=== PATIENT | male | born 1990 | race Caucasian/White ===

== ENCOUNTER → 2016-10-31 | Outpatient (CLI) | payer MEDICAID ==
[2016-10-31 12:19] LABS: BASO % 0.6 % (0.0-1.0); EOS # 0.3 K/mm3 (0.0-0.50); EOS % 4.1 % (0.0-3.0); LARGE UNSTAINED CELL # 0.2 K/mm3 (0.0-0.4); LARGE UNSTAINED CELL % 2.3 % (0.0-4.0); LYMPH # 2.3 K/mm3 (1.5-6.5); LYMPH % 31.7 % (24.0-44.0); MEAN CORPUSCULAR HEMOGLOBIN 30.2 pg (27.0-33.0); MEAN CORPUSCULAR HGB CONC 34.5 g/dl (32.0-36.5); MEAN CORPUSCULAR VOLUME 87.5 fl (80.0-96.0); MONO # 0.4 K/mm3 (0.0-0.8); MONO % 5.3 % (0.0-5.0); NEUTROPHILS # 3.8 K/mm3 (1.8-7.7); NEUTROPHILS % 55.9 % (36.0-66.0); PLATELET COUNT, AUTOMATED 273 k/mm3 (150-450); RED CELL DISTRIBUTION WIDTH 12.6 % (11.5-14.5); WHITE BLOOD COUNT 6.7 K/mm3 (4.0-10.0)
[2016-10-31 12:38] LABS: ALBUMIN 4.3 GM/DL (3.2-5.2); ALBUMIN/GLOBULIN RATIO 1.26 (1.00-1.93); ALKALINE PHOSPHATASE 104 U/L (45-117); ALT/SGPT 57 U/L (12-78); ANION GAP 6 MEQ/L (8-16); AST/SGOT 31 U/L (15-37); BILIRUBIN,TOTAL 0.3 MG/DL (0.2-1.0); BLOOD UREA NITROGEN 14 MG/DL (7-18); CALCIUM LEVEL 9.3 MG/DL (8.5-10.1); CARBON DIOXIDE LEVEL 32 MEQ/L (21-32); CHLORIDE LEVEL 101 MEQ/L (98-107); CREATININE FOR GFR 0.81 MG/DL (0.70-1.30); GLOMERULAR FILTRATION RATE > 60.0 (>60); GLUCOSE, FASTING 88 MG/DL (70-105); POTASSIUM SERUM 3.8 MEQ/L (3.5-5.1); SODIUM LEVEL 139 MEQ/L (136-145); TOTAL PROTEIN 7.7 GM/DL (6.4-8.2)
== END ==
LOC: M LAB 11:30
PROVIDERS: ATTEND Family Medicine
DX: F11.20 Opioid dependence, uncomplicated (principal)

== ENCOUNTER 2017-07-18 21:48 | Emergency (ER) | payer MEDICAID ==
[2017-07-18] MEDS: LIDOCAINE 2% MDV 20 ML VIAL SC (22:52)
== END 2017-07-18 23:40 | disposition home or self-care (01) ==
LOC: M ED 21:48
DX: S61.012A Laceration without foreign body of left thumb without damage to nail, initial encounter (principal); W26.0XXA Contact with knife, initial encounter; Y92.009 Unspecified place in unspecified non-institutional (private) residence as the place of occurrence of the external cause; Y93.89 Activity, other specified; F17.210 Nicotine dependence, cigarettes, uncomplicated; F99 Mental disorder, not otherwise specified; M85.80 Other specified disorders of bone density and structure, unspecified site; Z79.899 Other long term (current) drug therapy; Z82.49 Family history of ischemic heart disease and other diseases of the circulatory system
CPT/HCPCS: 12002

== ENCOUNTER → 2017-08-14 | Outpatient (REF) | payer OTHER | LOC: M LAB REF 18:23 | DX: J11.1 Influenza due to unidentified influenza virus with other respiratory manifestations (principal) ==

== ENCOUNTER → 2017-10-05 | Outpatient (CLI) | payer OTHER ==
[2017-10-05 15:15] LABS: HEMOGLOBIN 14.7 g/dl (14.0-18.0); MEAN CORPUSCULAR HEMOGLOBIN 29.3 pg (27.0-33.0); MEAN CORPUSCULAR HGB CONC 34.2 g/dl (32.0-36.5); MEAN CORPUSCULAR VOLUME 85.7 fl (80.0-96.0); PLATELET COUNT, AUTOMATED 443 10^3/uL (150-450); RED BLOOD COUNT 5.02 10^6/uL (4.30-6.10); RED CELL DISTRIBUTION WIDTH 13.3 % (11.5-14.5); WHITE BLOOD COUNT 10.8 10^3/uL (4.0-10.0)
[2017-10-05 15:40] LABS: ALBUMIN 4.2 GM/DL (3.2-5.2); ALBUMIN/GLOBULIN RATIO 1.11 (1.00-1.93); ALKALINE PHOSPHATASE 112 U/L (45-117); ALT/SGPT 22 U/L (12-78); ANION GAP 6 MEQ/L (8-16); AST/SGOT 20 U/L (7-37); BILIRUBIN,TOTAL 0.4 MG/DL (0.2-1.0); BLOOD UREA NITROGEN 16 MG/DL (7-18); CALCIUM LEVEL 9.5 MG/DL (8.5-10.1); CARBON DIOXIDE LEVEL 31 MEQ/L (21-32); CHLORIDE LEVEL 104 MEQ/L (98-107); CREATININE FOR GFR 0.84 MG/DL (0.70-1.30); GLOMERULAR FILTRATION RATE > 60.0 (>60); GLUCOSE, FASTING 90 MG/DL (70-100); POTASSIUM SERUM 4.1 MEQ/L (3.5-5.1); SODIUM LEVEL 141 MEQ/L (136-145)
[2017-10-05 15:55] LABS: HEPATITIS B SURFACE ANTIGEN NEGATIVE (NEGATIVE)
[2017-10-05 16:23] LABS: HIV 1&2 SCREEN CENTAUR NEGATIVE (NEGATIVE)
[2017-10-05 16:44] LABS: CHLAMYDIA DNA AMPLIFICATION NEGATIVE (NEGATIVE); GC DNA AMPLIFICATION NEGATIVE (NEGATIVE)
== END ==
LOC: M LAB 14:47
DX: F11.20 Opioid dependence, uncomplicated (principal)
CPT/HCPCS: 93005

== ENCOUNTER 2018-08-23 12:42 | Day surgery (SDC) | payer OTHER ==
[~2018-08-23] VITALS: Ht 180.3 cm; Wt 80.6 kg
[~2018-08-23 12:42] MED LIST: GABA600T4; SUBO8MIS SL; TRAZ-160; VENL75CA47
[2018-08-23] MEDS ORDERED: NS 1,000 ML IV SCH ×2 (12:59→16:30)
[2018-08-23] MEDS ORDERED: MORPHINE 4 MG/ML 1ML VIAL/SYRINGE (J2270) IV PRN (13:00)
[2018-08-23 14:17] LABS: HEMATOCRIT 40.3 % (42.0-52.0); HEMOGLOBIN 13.9 g/dl (13.5-17.5); MEAN CORPUSCULAR HEMOGLOBIN 29.4 pg (27.0-33.0); MEAN CORPUSCULAR HGB CONC 34.5 g/dl (32.0-36.5); MEAN CORPUSCULAR VOLUME 85.4 fl (80.0-96.0); PLATELET COUNT, AUTOMATED 298 10^3/uL (150-450); RED BLOOD COUNT 4.72 10^6/uL (4.30-6.10); WHITE BLOOD COUNT 15.8 10^3/uL (4.0-10.0)
--- NOTE | 2018-08-23 14:38 | REP ---
Clinical: Trauma. Technique: AP, lateral, bilateral oblique views of the left ankle. Findings: There is an oblique moderately displaced fracture involving the distal tibial diaphysis. Ankle joint appears intact and normal. Impression: Oblique moderately displaced fracture of the distal tibial diaphysis. Electronically Signed by Az Dixon MD 08/23/2018 02:29 P
--- NOTE | 2018-08-23 14:38 | REP ---
Clinical: Trauma. Technique: AP and lateral views of the left tibia / fibula. Findings: Comminuted fracture of the proximal fibular metadiaphysis and oblique minimally displaced fracture of the distal tibial diaphysis appreciated. No subcutaneous emphysema or radiodense foreign body. Impression: Fractures of the proximal fibula and distal tibia. Electronically Signed by Az Dixon MD 08/23/2018 02:30 P
[2018-08-23 14:44] LABS: BLOOD UREA NITROGEN 11 MG/DL (7-18); CALCIUM LEVEL 8.9 MG/DL (8.5-10.1); CARBON DIOXIDE LEVEL 29 MEQ/L (21-32); CHLORIDE LEVEL 104 MEQ/L (98-107); CREATININE FOR GFR 0.81 MG/DL (0.70-1.30); GLOMERULAR FILTRATION RATE > 60.0 (>60); GLUCOSE, FASTING 91 MG/DL (70-100); POTASSIUM SERUM 3.7 MEQ/L (3.5-5.1); SODIUM LEVEL 140 MEQ/L (136-145)
[2018-08-23] MEDS ORDERED: NICO4LOZ BUC (15:15)
[2018-08-23] MEDS ORDERED: METH10TA2 PO (15:15)
[2018-08-23] MEDS ORDERED: MEDICAL MARIJUANA INH (15:15)
[2018-08-23] MEDS ORDERED: VENTAER INH (15:15)
[2018-08-23] MEDS: HYDROMORPHONE HCL 0.5 MG/ 0.5 ML SYRINGE (J1170 PER 1) IV PRN ×2 (15:25→18:10)
[2018-08-23] MEDS ORDERED: diphenhydrAMINE INJ 50MG/ML VIAL (J1200) IV STA (16:29)
[2018-08-23] MEDS ORDERED: METOCLOPRAMIDE INJ 10MG/2ML VIAL (J2765) IV ONE (16:30)
[2018-08-23] MEDS ORDERED: METOCLOPRAMIDE INJ 10MG/2ML VIAL (J2765) As Ordered ONE (16:38)
[2018-08-23] MEDS ORDERED: diphenhydrAMINE INJ 50MG/ML VIAL (J1200) As Ordered ONE (16:39)
--- NOTE | 2018-08-23 17:14 | CR ---
EMERGENCY ROOM CONSULTATION / ADMISSION NOTE DATE OF SERVICE: 08/23/2018 REASON FOR CONSULTATION AND ADMISSION: Left tibia and fibula fracture. HISTORY OF PRESENT ILLNESS: 28-year-old male who slipped on the snow walking on a sidewalk twisting his left leg. [place] a pop, was unable to ambulate, called his mother who came to the scene and unable to get him up and called the ambulance. He was brought by ambulance to [facility] for evaluation. Complained of isolated soreness only to his left leg and ankle area. There is no other injury or complaints of soreness or pain otherwise. He is here with his mother. PAST MEDICAL HISTORY: Significant for opioid addiction. Remote staphylococcus infection of his toe. MEDICATIONS: - methadone 70 mg by mouth daily - He has a Marinol prescription PRIMARY CARE PROVIDER: Dr. Burnette who oversees his opioid addiction medication regimen. SOCIAL HISTORY: He is presently unemployed but he normally works at the [employer] in [place]. He does smoke cigarettes. FAMILY HISTORY: Otherwise unremarkable. PHYSICAL EXAMINATION: Alert and oriented male. Only complains of soreness of the left leg and ankle. Does complain of a vague tingling sensation in his foot associated with the swelling of the ankle. Temperature 99.7, pulse is 96, respirations 18, blood pressure 153/94, oxygen saturations are 97% on room air. LUNGS: Clear to auscultation. HEART: Regular. I do not detect a murmur. ABDOMEN: Nontender. EXTREMITIES: Left lower extremity. He has no tenderness or swelling about the knee. His left lower leg had some mild swelling above the ankle with localized tenderness, but his compartments otherwise were soft. He can dorsiflex and plantarflex is ankle and his great toe without excessive pain. He had a strong dorsalis pedis and posterior tibialis pulse and sensory testing to light touch was actually intact dorsum and plantar surface of his foot, but he had that vague tingling sensation, said it just does not feel normal. X-rays reveal a distal two-thirds oblique tibia fracture with some displacement, but reasonably aligned on the lateral view. LABS: Laboratory studies showed a white count of 15.8, hematocrit 40.3, platelets 298. Sodium 140, potassium 3.7, bicarbonate 29, chloride 104. Sugar 91. BUN 11, creatinine 0.81. IMPRESSION: This is a closed left tibia and fibula fracture in a 28-year-old male. He is generally healthy other than is opioid addiction and he is a smoker. I talked to he and his mother and the patient at length about the options for treatment of these types of injuries, either closed management with a long leg cast or surgical management, either with plate and screws or intramedullary nail. The advantage of the closed treatment is no risk of having a surgical intervention that puts him at risk of infection or nerve or blood vessel damage. However, the downside would be the morbidity of a long leg cast. Other options of course were surgical, but that carries the risk of having infection, damage to nerves and blood vessels, anesthetic complications amongst others, but the advantage would be better chance of getting more anatomic reduction and a more comfortable and early mobilization. The actual healing time may not be that much different. But I went over these options with him in detail. He is a bit of an increased risk because he is a smoker, but he is trying to quit and we did advise him to work on that, but otherwise we have elected to proceed with surgical management, I think reasonable to consider an IM nail for this fracture, explained that I would have to make an incision in the knee. But that does carry the risk as outlined and he understands that and so he has decided to go ahead. He has been nothing by mouth (npo) since yesterday actually and so he signed the consent today for the procedure and we plan to proceed when the operating room is available for us. I told him that it may be myself or possibly my partner Dr. Mosqueda depending on the OR availability because Dr. Mosqueda my partner will be poultry boner for the evening on the weekend.
[2018-08-23] MEDS ORDERED: HYDROMORPHONE HCL 0.5 MG/ 0.5 ML SYRINGE (J1170 PER 1) As Ordered ONE (18:07)
[2018-08-23] MEDS ORDERED: ONDANSETRON 4MG/2ML VIAL (J2405) As Ordered ONE (19:24)
[2018-08-23] MEDS ORDERED: LIDOCAINE 2% INJ 100 MG/5 ML SDV (FOR ANES.) As Ordered ONE (19:24)
[2018-08-23] MEDS ORDERED: dexameTHASONE 4 MG/ML 1ML VIAL (J1100) As Ordered ONE (19:24)
[2018-08-23] MEDS ORDERED: PROPOFOL 500 MG/50 ML VIAL As Ordered ONE (19:25)
[2018-08-23] MEDS ORDERED: MIDAZOLAM INJ 2 MG/2 ML VIAL (J2250) As Ordered ONE (19:25)
[2018-08-23] MEDS ORDERED: fentaNYL 100 MCG/2 ML INJECTION (J3010) As Ordered ONE ×2 (19:25→22:46)
[2018-08-23] MEDS ORDERED: ceFAZolin 2 GM/D5W 50 ML IV BAG (J0690 PER 500MG) As Ordered ONE (20:29)
[2018-08-23] MEDS ORDERED: ceFAZolin 1GM INJ (J0690 PER 500MG) As Ordered ONE (20:36)
[2018-08-23] MEDS ORDERED: PROPOFOL 200 MG/20 ML VIAL As Ordered ONE ×2 (21:29→22:46)
[2018-08-23] MEDS ORDERED: DESFLURANE 240 ML INHALANT As Ordered ONE ×2 (22:49→22:51)
[2018-08-23] MEDS: PERCOCET 5MG/325MG TAB PO PRN (23:20)
[2018-08-23] MEDS: fentaNYL 100 MCG/2 ML INJECTION (J3010) IV PRN ×4 (23:20→23:47)
[2018-08-23] MEDS ORDERED: NORCO, ANEXSIA 5/325MG TABLET (HYDROcodone/ACETAMINOPHEN) PO PRN ×2 (23:30)
[2018-08-23] MEDS ORDERED: ONDANSETRON 4MG/2ML VIAL (J2405) IV PRN (23:30)
[2018-08-23] MEDS ORDERED: HYDROMORPHONE HCL 0.5 MG/ 0.5 ML SYRINGE (J1170 PER 1) IV PRN (23:30)
[2018-08-23] MEDS ORDERED: LR 1,000 ML IV SCH (23:30)
[2018-08-23] MEDS: LR 1,000 ML IV SCH (23:30)
[2018-08-24] MEDS: PERCOCET 5MG/325MG TAB PO PRN (00:37)
[2018-08-24 00:40] VITALS: BP 135/86
[2018-08-24] MEDS ORDERED: PERCOCET 5MG/325MG TAB As Ordered ONE (00:40)
[2018-08-24] MEDS: MORPHINE 4 MG/ML 1ML VIAL/SYRINGE (J2270) IV PRN ×3 (01:10→05:25)
[2018-08-24] MEDS: NICOTINE 21MG/24HR 1 EA TRANSDERMAL TD SCH ×2 (02:11→08:31)
[2018-08-24] MEDS ORDERED: zolPIDEM TARTRATE 5 MG TAB PO ONE (02:15)
[2018-08-24 02:40] VITALS: BP 130/65
[2018-08-24 03:40] VITALS: BP 131/73
--- NOTE | 2018-08-24 04:12 | REP ---
Clinical: Fracture fixation. Technique: Intraoperative fluoroscopic imaging. Findings: Multiple intraoperative fluoroscopic images using portable C-arm technique demonstrate the patient to be status post satisfactory open reduction and fixation for distal tibial diaphyseal fracture. Intermedullary rakesh through the tibial shaft with locking screws are identified. Total fluoroscopic time 4 minutes 20 seconds. Impression: Satisfactory open reduction and fixation for distal tibial diaphyseal fracture. Electronically Signed by Az Dixon MD 08/24/2018 04:04 A
[2018-08-24 04:40] VITALS: BP 137/63
[2018-08-24 06:00] VITALS: BP 157/85
[2018-08-24] MEDS ORDERED: PERC5TAB12 PO (06:22)
[2018-08-24] MEDS ORDERED: KETOROLAC 30 MG/ML VIAL (J1885) IV ONE (06:30)
[2018-08-24] MEDS ORDERED: BAYE325T12 PO (06:43)
--- NOTE | 2018-08-24 07:52 | IPN ---
DATE: 08/24/2018 CHIEF COMPLAINT: Postoperative day #1 left tibia intramedullary nail (IM) nail for a fracture. HISTORY OF PRESENT ILLNESS: This is a 28-year-old man, apparently slipped on the snow walking on a sidewalk twisted his left leg. He had intramedullary nailing performed of this fracture yesterday by Dr. Gus Pearce. I am seeing him today on the [place] postoperative day #1. He was having definitely some pain overnight and I was called for a nicotine patch order and a sleeping pill, which I ordered a one time dose of Ambien for him. He apparently had a better night once he got some sleep. This morning he is comfortable. He not complaining about any pain in the leg except when he has to move it around. He has no other concerns. The pain is located distally at the fracture site. No other concerns from the nursing staff or from Elizabeth arndt nurse practitioner. PHYSICAL EXAMINATION: Vital signs: Temperature this morning 98.0. Blood pressure 157/85, mean arterial pressure (MAP) 109. Pulse rate 60. 19 respiratory rate. 99% on room air. He is alert and oriented times three. Mood and affect is good and actually quite pleasant. Station is normal. His lower extremity is in a bandage from the knee down with a three-sided splint. He is able to wiggle toes. Toes are warm and well perfused. He has normal sensation throughout the foot. Compartments are soft in the posterior aspect and anterior compartment. No pain with wiggling his toes or dorsiflexion of plantar flexion of his toes. There is no blood work yet from this morning. Yesterday's hemoglobin was 13.9. Similarly, chemistries are still pending. ASSESSMENT AND PLAN: This 28-year-old man postoperative day #1 from a left tibia fracture fixed with an intramedullary nail. We have warned him that usual course of this is to be non-weightbearing for about 6 weeks' time. He should followup in the office in about 2 weeks. Physiotherapy will come around for crutches teaching. We have also given him a dose of intramuscular (IM) Toradol last night and this seems to be helping for his pain. He can be discharged home when he is safe to weight-bear and when he is comfortable. I have also reminded him to elevate it. We have him on aspirin 325 mg by mouth once daily while he is in hospital for venous thromboembolism (VTE) prophylaxis. This man is also a recovering opioid abuser and he is on methadone 70 mg subcu once daily. He should continue on to finish his intravenous cefazolin for routine postoperative care. Hopefully, he is discharged home today.
[2018-08-24] MEDS: LR 1,000 ML IV SCH (08:32)
[2018-08-24] MEDS ORDERED: ASPIRIN 325 MG TAB PO SCH (09:00)
[2018-08-24] MEDS ORDERED: METHADONE 10 MG TAB (S0109) PO SCH (09:00)
--- NOTE | 2018-08-24 09:23 | RO ---
DATE OF PROCEDURE: 08/23/2018 PREPROCEDURE DIAGNOSIS: Left distal tibial with proximal fibula fracture. POSTPROCEDURE DIAGNOSES: 1. Left distal tibial fracture with proximal fibular fracture. 2. Nondisplaced intra-articular distal tibial posterior malleolar fracture. PROCEDURE: 1. Closed intramedullary (IM) of left tibia fracture with a size 9 x 345 mm reamed Synthes nail with two distal interlocks and one proximal interlock. 2. Percutaneous screw fixation of posterior malleolus fracture, left distal tibia. SURGEON: Dr. Swetha Pearce. BLOCK GREASER: ANESTHESIA: Spinal with general laryngeal mask anesthetic. COMPLICATIONS: None. ESTIMATED BLOOD LOSS: 50 mL. DESCRIPTION OF PROCEDURE: Antibiotics were given intravenously preoperatively and a then a successful spinal anesthetic was induced. A tourniquet was placed on the left upper thigh but no utilized throughout the case. The left lower extremity was then carefully prepped and draped in the usual sterile fashion. After appropriate time out, a longitudinal incision was made in the medial parapatellar tendon area. Blunt dissection down to the deep parapatellar tendon retinaculum was performed. Bovie cautery was used to coagulate the crossing vessels. The retinaculum was divided. We stayed extra-articularly and identified the starting point just behind the patellar tendon proximal to the tibial tubercle. Under fluoroscopic imaging, between the AP and lateral planes, I determined the starting point and drilled a short distance, then used the awl to open and then placed the ball-tip guide rakesh. We took our time to try to get the guide rakesh down the tibial shaft. Once I got to the fracture site, I used an extra-articular clamp percutaneously to hold the bone relatively reduced in rotation and length as well as varus valgus. The I passed the ball-tip guide rakesh across the fracture site making sure it tended to go centered into the distal fragment so it would not cause any varus or valgus malalignment as best as I could determine. Initially, however, the guide rakesh had a bend in it proximally along the lateral cortex of the tibia, thus I had to remove the guidewire and replace it such that it was centered all the way down the tibial shaft. Once that was set, I was satisfied with the reduction, immediately got the length measured at 345 mm and then began reaming starting at 9. He actually had good chatter starting even at 9 so I only went up to 10.5 and placed a 9 mm IM nail. That was called for once we completed the reaming under fluoroscopic imaging and then the nail was loaded and placed across the fracture site. At this point while we were looking at the distal interlock, she could see that there was a nondisplaced posterior malleolar fracture. At this point, I placed the two distal interlocks under free-hand technique by making the small 15 blade incision in the skin, bunt dissection down to the bone and then drilling across the distal portion of the rakesh through the distal interlock holes, measuring with the depth gauge and then passing the appropriate size screws and checking their position in the AP and lateral planes. We then placed the proximal interlock screw. Again, we made a small longitude incision and dissected down to the bone bluntly and drilled across, measured and placed a 42 mm proximal interlock screws. We checked its position in the AP and lateral planes with the fluoroscope. The rakesh was also noted to be in good position. I irrigated out proximally and decided to use a +5 mm end cap in case we needed to come back and extract the nail. That was placed without difficulty. We then turned our attention back to the posterior malleolar fragment. I decided to use a 4.5 cannulated screw because that would allow us freedom of orientation as opposed to using the distal interlock screw going through the nail as I wanted to make sure it went appropriately perpendicular to the fracture site. Under fluoroscopic imaging, I made a small longitudinal incision anteriorly. Dissection down with a blunt hemostat to the anterior tibial cortex and passed the 4.5 cannulated guidepin across. Made sure it was in good position and was away from the nail so it would not interfere. Once I measured appropriately, I just drilled the nearer cortex and passed a partially threaded 4.5 cannulated screw with excellent purchase. After this, we could no longer see the fracture line. It was anatomically aligned. At this point, we copiously irrigated out all of the wounds. Closed the retinacular deep tissues with #2-0 PDS suture around the parapatellar tendon, and then the deep subdermal tissues with interrupted #2-0 PDS suture. The skins was closed with darrick. All the wounds were then covered with Adaptic dry sterile bulky dressing, Webril, cast padding and then a sugar-tongue splint across the ankle was applied with an yasmin wrap. He was then awakened from general laryngeal mask anesthetic after having tolerated the procedure well. Then transferred to the recovery room in stable condition. There were no intraoperative complications.
--- NOTE | 2018-08-28 08:30 | ECGEPIP ---
Stationary ECG Study [facility] - ED Test Date: 2018-08-24 Pat Name: MARIS GREEN Department: Room: - Gender: M Fireperson: : 1990 Requested By: Sanyd Bautista Order Number: [id number] Reading MD: Sandy Bautista Measurements Intervals [place] Rate: 47 P: 49 ID: [id number] QRS: 17 QRSD: 86 T: 21 QT: 455 QTc: 406 Interpretive Statements [address]INUS BRAD[address]ARDIA [address] ELEVATION, PROBABLY EARLY REPOLARIZATION BASELINE ARTIFACT LIMITS INTERPRETATION DECREASED RATE 10/05/17 Electronically Signed On 08-28-2018 8:30:04 EST by Sandy Bautista
== END 2018-08-24 10:35 | disposition home or self-care (01) ==
LOC: M ED 12:42 → M SDC 15:05 → M MS5PR 08-24 00:40 → M SDC 08-24 10:35
PROVIDERS: ATTEND Orthopaedic Surgery
DX: S82.302A Unspecified fracture of lower end of left tibia, initial encounter for closed fracture (principal); S82.832A Other fracture of upper and lower end of left fibula, initial encounter for closed fracture; S82.55XA Nondisplaced fracture of medial malleolus of left tibia, initial encounter for closed fracture; W00.0XXA Fall on same level due to ice and snow, initial encounter; Y92.89 Other specified places as the place of occurrence of the external cause; Y93.89 Activity, other specified; Y99.8 Other external cause status; F11.21 Opioid dependence, in remission; F12.90 Cannabis use, unspecified, uncomplicated; R51 Headache; M41.9 Scoliosis, unspecified; Z72.0 Tobacco use
CPT/HCPCS: 27759; 27769; 36415; 73590; 73610; 80048; 85027; 93005; 96374; 96375; 96376; 97110; 97116; 97530; 99285; C1713; J0690; J1100; J1170; J1200; J1885; J2250; J2270; J2405; J2765; J3010

== ENCOUNTER → 2018-09-27 | Outpatient (CLI) | payer OTHER ==
[~2018-09-27] MED LIST changes: +BAYE325T12 PO; +MEDICAL MARIJUANA INH; +METH10TA2 PO; +NICO4LOZ BUC; +PERC5TAB12 PO; +VENTAER INH
[2018-09-27 16:27] LABS: HEMATOCRIT 43.6 % (42.0-52.0); HEMOGLOBIN 14.6 g/dl (13.5-17.5); MEAN CORPUSCULAR HEMOGLOBIN 29.1 pg (27.0-33.0); MEAN CORPUSCULAR HGB CONC 33.5 g/dl (32.0-36.5); PLATELET COUNT, AUTOMATED 379 10^3/uL (150-450); RED BLOOD COUNT 5.01 10^6/uL (4.30-6.10); WHITE BLOOD COUNT 16.2 10^3/uL (4.0-10.0)
[2018-09-27 17:00] LABS: ALBUMIN 4.2 GM/DL (3.2-5.2); ALT/SGPT 23 U/L (12-78); BILIRUBIN,TOTAL 0.7 MG/DL (0.2-1.0); BLOOD UREA NITROGEN 16 MG/DL (7-18); CALCIUM LEVEL 8.8 MG/DL (8.5-10.1); CARBON DIOXIDE LEVEL 33 MEQ/L (21-32); CHLORIDE LEVEL 103 MEQ/L (98-107); CREATININE FOR GFR 0.96 MG/DL (0.70-1.30); GLOMERULAR FILTRATION RATE > 60.0 (>60); GLUCOSE, FASTING 94 MG/DL (70-100); POTASSIUM SERUM 4.3 MEQ/L (3.5-5.1); SODIUM LEVEL 141 MEQ/L (136-145); TOTAL PROTEIN 8.1 GM/DL (6.4-8.2)
[2018-09-27 17:51] LABS: HIV 1&2 SCREEN CENTAUR NEGATIVE (NEGATIVE)
[2018-09-27 18:06] LABS: CHLAMYDIA DNA AMPLIFICATION NEGATIVE (NEGATIVE); GC DNA AMPLIFICATION NEGATIVE (NEGATIVE)
--- NOTE | 2018-09-28 17:43 | ECGEPIP ---
Stationary ECG Study [facility] Test Date: 2018-09-27 Pat Name: MARIS GREEN Department: Room: - Gender: M Expediter Clerk: DIA : 1990 Requested By: Mohan Burnette Order Number: [id number] Reading MD: Xavier Kat Measurements Intervals [place] Rate: 68 P: 62 SC: 177 QRS: 38 QRSD: 86 T: 53 QT: 388 QTc: 414 Interpretive Statements SINUS RHYTHM [address] ELEVATION, PROBABLY EARLY REPOLARIZATION Electronically Signed On 09-28-2018 17:43:18 EST by Xavier Kat
[2018-09-30 10:40] LABS: HEPATITIS B SURFACE ANTIGEN NEGATIVE (NEGATIVE)
[2018-09-30 11:09] LABS: HEPATITIS C VIRUS ABY INDEX < 0.0 INDEX (<0.8)
== END ==
LOC: M LAB 16:04
PROVIDERS: ATTEND Family Medicine
DX: F11.20 Opioid dependence, uncomplicated (principal)

== ENCOUNTER → 2019-11-05 | Outpatient (REF) | payer OTHER ==
[~2019-11-05] MED LIST changes: -TRAZ-160; +TRAZ-252
[2019-11-05 13:55] LABS: BASO # 0.1 10^3/uL (0.0-0.2); BASO % 0.8 % (0.0-1.0); EOS # 0.3 10^3/uL (0.0-0.5); EOS % 3.8 % (0.0-3.0); HEMATOCRIT 43.5 % (42.0-52.0); LYMPH # 2.1 10^3/uL (1.5-5.0); LYMPH % 27.3 % (24.0-44.0); MEAN CORPUSCULAR HEMOGLOBIN 30.2 pg (27.0-33.0); MEAN CORPUSCULAR HGB CONC 34.5 g/dl (32.0-36.5); MEAN CORPUSCULAR VOLUME 87.5 fl (80.0-96.0); MONO # 0.6 10^3/uL (0.0-0.8); MONO % 7.2 % (0.0-5.0); NEUTROPHILS # 4.6 10^3/uL (1.5-8.5); NEUTROPHILS % 60.5 % (36.0-66.0); PLATELET COUNT, AUTOMATED 350 10^3/uL (150-450); RED BLOOD COUNT 4.97 10^6/uL (4.30-6.10); WHITE BLOOD COUNT 7.6 10^3/uL (4.0-10.0)
[2019-11-05 14:16] LABS: ALBUMIN 3.8 GM/DL (3.2-5.2); ALT/SGPT 18 U/L (12-78); BILIRUBIN,TOTAL 0.2 MG/DL (0.2-1.0); BLOOD UREA NITROGEN 14 MG/DL (7-18); CALCIUM LEVEL 9.5 MG/DL (8.5-10.1); CARBON DIOXIDE LEVEL 30 MEQ/L (21-32); CHLORIDE LEVEL 104 MEQ/L (98-107); CHOLESTEROL LEVEL 135 MG/DL (<200); CHOLESTEROL RISK RATIO 3.214 (<5); CREATININE FOR GFR 0.83 MG/DL (0.70-1.30); GLOMERULAR FILTRATION RATE > 60.0 (>60); GLUCOSE, FASTING 104 MG/DL (70-100); HDL CHOLESTEROL 42 MG/DL (>40); HEPATITIS B SURFACE ANTIBODY POSITIVE (POSITIVE); LDL CHOLESTEROL 72 MG/DL (<100); NON-HDL-C 93 MG/DL; POTASSIUM SERUM 4.1 MEQ/L (3.5-5.1); SODIUM LEVEL 137 MEQ/L (136-145); THYROID STIMULATING HORMONE 0.384 uIU/ML (0.358-3.740); TOTAL PROTEIN 7.5 GM/DL (6.4-8.2); TRIGLYCERIDES LEVEL 106 MG/DL (<150)
[2019-11-05 14:26] LABS: HEPATITIS B SURFACE ANTIGEN NEGATIVE (NEGATIVE)
[2019-11-05 14:54] LABS: HEPATITIS B CORE ANTIBODY IGM NEGATIVE (NEGATIVE); HEPATITIS C VIRUS ABY INDEX 0.1 INDEX (<0.8)
[2019-11-05 14:55] LABS: HIV 1&2 SCREEN CENTAUR NEGATIVE (NEGATIVE)
== END ==
LOC: M SFHCPLAZ 10:36
PROVIDERS: ATTEND Physician Assistant Medical
DX: F19.10 Other psychoactive substance abuse, uncomplicated (principal); Z13.220 Encounter for screening for lipoid disorders; F41.9 Anxiety disorder, unspecified; Z72.51 High risk heterosexual behavior

== ENCOUNTER → 2019-11-11 | Outpatient (REF) | payer OTHER ==
[2019-11-11 21:52] LABS: CHLAMYDIA DNA AMPLIFICATION NEGATIVE (NEGATIVE); GC DNA AMPLIFICATION NEGATIVE (NEGATIVE)
== END ==
LOC: M SFHCPLAZ 16:44
PROVIDERS: ATTEND Physician Assistant Medical
DX: Z72.51 High risk heterosexual behavior (principal)

== ENCOUNTER 2020-10-08 18:53 | Emergency (ER) | payer OTHER ==
[~2020-10-08] VITALS: Ht 177.8 cm; Wt 68.2 kg
[~2020-10-08 18:53] MED LIST changes: +NICO-264 BUC; -NICO4LOZ BUC
[2020-10-08 18:54] VITALS: BP 174/96
[2020-10-08] MEDS ORDERED: SUBL100I SC (19:02)
[2020-10-08] MEDS ORDERED: KETOROLAC TROMETHAMINE 10 MG TAB PO ONE (19:15)
--- NOTE | 2020-10-08 19:29 | REP ---
INDICATION: fell/pain COMPARISON: None. TECHNIQUE: There are four views. FINDINGS: There is soft tissue edema dorsally. There is no fracture or dislocation. Mineralization and joint spaces are normal. There are no calcifications or foreign bodies. IMPRESSION: Soft tissue edema dorsally. No fracture or dislocation. <Electronically signed by Mohan Broussard > 10/08/209
== END 2020-10-08 19:56 | disposition home or self-care (01) ==
LOC: M ED 18:53
DX: S63.501A Unspecified sprain of right wrist, initial encounter (principal); W01.0XXA Fall on same level from slipping, tripping and stumbling without subsequent striking against object, initial encounter; Y92.9 Unspecified place or not applicable; Y93.9 Activity, unspecified; Y99.9 Unspecified external cause status

== ENCOUNTER 2021-04-06 16:48 | Emergency (ER) | payer OTHER ==
[~2021-04-06] VITALS: Ht 177.8 cm; Wt 63.6 kg
[~2021-04-06 16:48] MED LIST changes: +METH-1177 PO; -METH10TA2 PO; +SUBL100I SC
--- NOTE | 2021-04-06 18:11 | REP ---
INDICATION: TRAUMA. COMPARISON: 10/08/2020 TECHNIQUE: Five views with scaphoid view FINDINGS: There is a fracture through the waist of the scaphoid. There is a distal radial fracture with slight impaction. IMPRESSION: Scaphoid and distal radial fractures. <Electronically signed by Erick Anguiano > 04/06/21 [id number]
--- NOTE | 2021-04-06 19:10 | REP ---
INDICATION: ttp s/p fall. COMPARISON: None. TECHNIQUE: Four views FINDINGS: There is no acute fracture or destructive osseous lesion involving the hand. IMPRESSION: No acute abnormality involving the hand. See the wrist report. <Electronically signed by Erikc Anguiano > 04/06/21 [id number]
--- NOTE | 2021-04-06 19:11 | REP ---
INDICATION: ttp s/p fall. COMPARISON: None. TECHNIQUE: AP and lateral views FINDINGS: Scaphoid and distal radial fractures are identified. See the wrist report. There are no additional fractures. IMPRESSION: As above. <Electronically signed by Erick Anguiano > 04/06/21 [id number]
[2021-04-06] MEDS ORDERED: BOOSTRIX/ADACEL VACCINE (DIPHTH/PERTUSS/ACELL/TETANUS) 0.5ML SYR IM ONE (19:50)
[2021-04-06] MEDS ORDERED: NEOSPORIN OINT 0.9 GM PKT TOP ONE (21:35)
[2021-04-06 22:17] VITALS: BP 169/98
--- NOTE | 2021-04-07 06:47 | CR ---
ER CONSULTATION DATE: 04/06/2021 TIME: 9 p.m. CONSULTING SERVICE: Orthopedic Service CONSULTING PHYSICIAN: ANNETTE WALLS MD HISTORY OF PRESENT ILLNESS: This is a 30-year-old male who was long-boarding (skateboarding) in [place] when he sustained a fall off his skateboard going down a hill. The patient fell onto an outstretched right arm where he sustained a displaced distal third scaphoid fracture and a minimally displaced distal radius fracture which appeared to be extraarticular. This was a closed injury. He did have some mild road rash, however this is not an open fracture. Orthopedic Surgery was consulted for further evaluation and treatment. PAST MEDICAL HISTORY: Patient denies. PAST SURGICAL HISTORY: Left ankle open reduction internal fixation. ALLERGIES TO MEDICATIONS: Denies. CURRENT MEDICATIONS: None. SOCIAL HISTORY: He is a one pack a day smoker, non-alcohol user and non-IV drug user. REVIEW OF SYSTEMS: A 14 point review of systems was negative unless otherwise described in the HPI above. PHYSICAL EXAMINATION: Alert and oriented to person, time and place. Patient had tenderness to palpation in the snuff-box of his right wrist as well as the distal radius. He had mild edema about the distal radius and dorsal aspect of his right wrist. He had some mild road rash over the volar aspect of his right forearm. He was otherwise neurovascularly intact. He had brisk capillary refill to the digits under two seconds and a palpable radial ulnar pulse. He had 5/5 motor strength to the musculature of the musculocutaneous, axillary, radial, median and ulnar nerve distributions. He had sensation intact to light touch to the musculocutaneous, axillary, radial, median and ulnar nerve distributions. RADIOGRAPHS: Radiographs demonstrate a right distal radius fracture which appears to be extraarticular in nature, may require CT for further evaluation of the fracture extension which may possibly be intraarticular. His mechanical alignment appeared to be restored. There did not appear to be any displacement of the distal radius fracture. His volar tilt was appropriate and his radial height was appropriate. He had a distal third scaphoid fracture which was displaced over 2 mm. No other osseous abnormalities were appreciated. IMPRESSION: A 30-year-old male with a closed minimally displaced right distal radius fracture and a displaced distal third scaphoid fracture. PLAN: At this point in time given the complexity of his scaphoid fracture, I feel it is appropriate to have him follow-up as an outpatient to a hand surgeon in the [place] area. This is a complex hand case given the displacement and the distal third nature of the scaphoid fracture and he will best be served by a hand surgeon specialist. We referred him to [facility]. However, I did emphasize to the patient that if he is not scheduled for an appointment within 10 days to look elsewhere given the complexity of his fracture and the urgent definitive surgical care that it will likely require. Patient was placed in a well-padded sugar-tong splint with a thumb spica extension and will follow-up with the aforementioned hand surgeon within a week. Patient was given pain medication per the ER provider.
== END 2021-04-06 22:21 | disposition home or self-care (01) ==
LOC: M ED 16:48
DX: S52.511A Displaced fracture of right radial styloid process, initial encounter for closed fracture (principal); S52.591A Other fractures of lower end of right radius, initial encounter for closed fracture; S50.811A Abrasion of right forearm, initial encounter; V00.131A Fall from skateboard, initial encounter; Y92.410 Unspecified street and highway as the place of occurrence of the external cause; Y93.51 Activity, roller skating (inline) and skateboarding; Y99.9 Unspecified external cause status; F17.200 Nicotine dependence, unspecified, uncomplicated; F12.10 Cannabis abuse, uncomplicated

== ENCOUNTER 2023-12-06 18:14 | Emergency (ER) | payer OTHER ==
[~2023-12-06] VITALS: Ht 177.8 cm; Wt 90.8 kg
[2023-12-06] MEDS ORDERED: CLON-412 (18:32)
[2023-12-06] MEDS ORDERED: METH10CO PO (18:32)
[2023-12-06] MEDS ORDERED: QUET100T2 (18:32)
[2023-12-07 03:05] VITALS: BP 141/81; TEMP 98; O2SAT 98
== END 2023-12-07 04:45 | disposition home or self-care (01) ==
LOC: M ED 18:14
DX: S06.0X0A Concussion without loss of consciousness, initial encounter (principal); U07.1 COVID-19; Y92.9 Unspecified place or not applicable; Y99.9 Unspecified external cause status; Y93.9 Activity, unspecified; W22.8XXA Striking against or struck by other objects, initial encounter; F19.10 Other psychoactive substance abuse, uncomplicated; Z79.899 Other long term (current) drug therapy

== ENCOUNTER → 2024-02-20 | Outpatient (CLI) | payer OTHER ==
[~2024-02-20] MED LIST changes: +CLON-412; +METH10CO PO; +QUET100T2
== END ==
LOC: M RAD 14:22
PROVIDERS: ATTEND Physician Assistant
DX: B34.9 Viral infection, unspecified (principal)

== ENCOUNTER → 2024-11-19 | Outpatient (CLI) | payer OTHER ==
[~2024-11-19] MED LIST changes: -BAYE325T12 PO; +BAYE325T2 PO; +GABA-1490; -GABA600T4
[2024-11-19 09:44] LABS: HEMATOCRIT 40.9 % (42.0-52.0); HEMOGLOBIN 13.8 g/dl (13.5-17.5); MEAN CORPUSCULAR HEMOGLOBIN 30.1 pg (27.0-33.0); MEAN CORPUSCULAR HGB CONC 33.7 g/dl (32.0-36.5); MEAN CORPUSCULAR VOLUME 89.1 fl (80.0-96.0); PLATELET COUNT, AUTOMATED 347 10^3/uL (150-450); RED BLOOD COUNT 4.59 10^6/uL (4.30-6.10); WHITE BLOOD COUNT 9.4 10^3/uL (4.0-10.0)
[2024-11-19 10:02] LABS: ALBUMIN 3.9 G/DL (3.2-5.2); ALKALINE PHOSPHATASE 100 U/L (40-129); ALT/SGPT 25 U/L (7.0-40); AST/SGOT 17 U/L (<34); BILIRUBIN,TOTAL 0.3 MG/DL (0.3-1.2); BLOOD UREA NITROGEN 15 MG/DL (9-23); CALCIUM LEVEL 9.1 MG/DL (8.5-10.1); CARBON DIOXIDE LEVEL 28 MMOL/L (20-31); CHLORIDE LEVEL 105 MMOL/L (98-107); CREATININE FOR GFR 0.79 MG/DL (0.70-1.30); GLOMERULAR FILTRATION RATE > 90.0 (>60); GLUCOSE, FASTING 95 MG/DL (60-100); POTASSIUM SERUM 4.1 MMOL/L (3.5-5.1); SODIUM LEVEL 140 MMOL/L (136-145); TOTAL PROTEIN 7.2 G/DL (5.7-8.2)
[2024-11-19 10:38] LABS: HIV 1&2 SCREEN NEGATIVE (NEGATIVE)
[2024-11-19 10:45] LABS: HEPATITIS C VIRUS ABY INDEX 0.04 INDEX (<0.8)
[2024-11-19 10:48] LABS: HEPATITIS B SURFACE ANTIGEN NEGATIVE (NEGATIVE)
[2024-11-19 12:33] LABS: GC DNA AMPLIFICATION NEGATIVE (NEGATIVE)
== END ==
LOC: M LAB 08:43
PROVIDERS: ATTEND Family Medicine
DX: F11.20 Opioid dependence, uncomplicated (principal)

== ENCOUNTER 2025-05-08 07:54 | Emergency (ER) | payer OTHER ==
[~2025-05-08] VITALS: Ht 180.3 cm; Wt 68.2 kg
[2025-05-08] MEDS ORDERED: AMOX875T2 PO (08:57)
[2025-05-08 09:21] LABS: BASO # 0.0 10^3/uL (0.0-0.2); BASO % 0.2 % (0.0-1.0); EOS # 0.1 10^3/uL (0.0-0.5); EOS % 0.5 % (0.0-3.0); LYMPH # 0.7 10^3/uL (1.5-5.0); LYMPH % 3.0 % (24.0-44.0); MONO # 0.7 10^3/uL (0.0-0.8); MONO % 3.0 % (2.0-8.0); NEUTROPHILS # 20.2 10^3/uL (1.5-8.5); NEUTROPHILS % 92.8 % (36.0-66.0); PLATELET COUNT, AUTOMATED 394 10^3/uL (150-450)
[2025-05-08] MEDS: FAMOTIDINE 20 MG/2 ML VIAL IVP ONE (09:33)
[2025-05-08] MEDS: NS (Normal Saline) 0.9% 1,000 ML IV ONE (09:34)
[2025-05-08] MEDS: KETOROLAC 30 MG/ML 1 ML VIAL IV ONE (09:34)
[2025-05-08 09:47] LABS: ALT/SGPT 28 U/L (7.0-40); AST/SGOT 35 U/L (<34); CK-MB VALUE MASS 6.0 NG/ML (<3.6)
[2025-05-08 09:49] LABS: CPK CREATINE PHOSPHOKINASE 235 U/L (46-171); MB/CK RELATIVE INDEX 2.55 (< OR =4)
[2025-05-08 10:06] VITALS: TEMP 98
[2025-05-08] MEDS ORDERED: ISOVUE-370 76% 100 ML VIAL As Ordered ONE (10:30)
[2025-05-08 11:52] LABS: KETONE, URINE AUTO RFX NEGATIVE (NEGATIVE); LEUKOCYTE ESTERASE UR AUTO RFX NEGATIVE (NEGATIVE); MUCUS, URINE RFX SMALL (NEGATIVE); NITRITE, URINE AUTO RFX NEGATIVE (NEGATIVE); RBC, URINE AUTO RFX 1 /HPF (0-3); SQUAM EPITHELIAL CELL UR AURFX 0 /HPF (0-6); WBC, URINE AUTO RFX 1 /HPF (0-3)
[2025-05-08] MEDS ORDERED: ONDA-282 PO (13:23)
[2025-05-08 14:00] VITALS: BP 126/78; O2SAT 94
[2025-05-08] MEDS: AUGMENTIN 875 MG TAB PO ONE (14:11)
== END 2025-05-08 14:23 | disposition home or self-care (01) ==
LOC: M ED 07:54 → EDBD 07:54 → M ED 14:23
DX: T68.XXXA Hypothermia, initial encounter (principal); H66.93 Otitis media, unspecified, bilateral; F15.10 Other stimulant abuse, uncomplicated; F17.210 Nicotine dependence, cigarettes, uncomplicated; Z79.2 Long term (current) use of antibiotics; Z79.899 Other long term (current) drug therapy
CPT/HCPCS: 36415; 71045; 74177; 80047; 80076; 81001; 82550; 82553; 83605; 83690; 84484; 85025; 87486; 87581; 87633; 87798; 93005; 93041; 96361; 96374; 96375; 99285; J1308; J1885; Q9967